=== PATIENT | female | born 1985 | race Caucasian/White ===

== ENCOUNTER 2019-09-06 20:18 | Outpatient (CLI) | payer OTHER ==
[~2019-09-06] VITALS: Ht 172.7 cm; Wt 102.3 kg
[2019-09-06 20:26] VITALS: BP 134/80
== END 2019-09-06 21:30 | disposition home or self-care (01) ==
LOC: LDOP 20:18
PROVIDERS: ATTEND Student in an Organized Health Care Education/Training Program
DX: O42.92 Full-term premature rupture of membranes, unspecified as to length of time between rupture and onset of labor (principal); Z3A.38 38 weeks gestation of pregnancy
CPT/HCPCS: 59025; 84112; 99201; G0463

== ENCOUNTER 2019-09-11 01:23 | Inpatient (IN) | payer OTHER ==
[~2019-09-11] VITALS: Ht 172.7 cm; Wt 103.2 kg
[2019-09-11 01:22] VITALS: BP 119/86
[2019-09-11] MEDS ORDERED: METOCLOPRAMIDE 5 MG/ML, 2ML ONE (01:58)
[2019-09-11] MEDS ORDERED: SODIUM CITRATE/CITRIC ACID 30 ML UDC ONE (01:58)
[2019-09-11] MEDS ORDERED: OXYTOCIN 30U/ 0.9% NaCL 500ML 500 ML ONE ×2 (01:58→04:13)
[2019-09-11] MEDS ORDERED: NEWBORN KIT ONE (01:58)
[2019-09-11] MEDS ORDERED: METOCLOPRAMIDE 5 MG/ML, 2ML IV ONE (02:00)
[2019-09-11] MEDS ORDERED: LACTATED RINGERS 1,000 ML IVBOLUS ONE (02:00)
[2019-09-11] MEDS ORDERED: SODIUM CITRATE/CITRIC ACID 30 ML UDC PO ONE (02:00)
[2019-09-11 02:23] LABS: BASOPHILS # (AUTO) 0.03 x10^3/uL (0-0.1); BASOPHILS % (AUTO) 1 % (0-1); EOSINOPHILS # (AUTO) 0.12 x10^3/uL (0-0.4); EOSINOPHILS % (AUTO) 2 % (1-7); LYMPHOCYTES # (AUTO) 2.54 x10^3/uL (1-3.4); LYMPHOCYTES % (AUTO) 35 % (22-44); MD NO; MEAN CORPUSCULAR HEMOGLOBIN 28.4 pg (27.0-34.8); MEAN CORPUSCULAR HGB CONC 33.7 g/dL (32.4-35.8); MEAN CORPUSCULAR VOLUME 84.4 fL (80-100); MEAN PLATELET VOLUME 8.8 fL (7.4-10.4); MONOCYTES # (AUTO) 0.32 x10^3/uL (0.2-0.8); MONOCYTES % (AUTO) 4 % (2-9); NEUTROPHILS # (AUTO) 4.18 x10^3/uL (1.8-6.8); NEUTROPHILS % (AUTO) 58 % (42-75); PLATELET COUNT 186 x10^3/uL (130-400); RED BLOOD COUNT 3.81 x10^6/uL (3.82-5.3); RED CELL DISTRIBUTION WIDTH 13.9 % (9.6-15.2)
[2019-09-11] MEDS ORDERED: EPHEDRINE 50 MG/ML, 1ML IVPush PRN (04:00)
[2019-09-11] MEDS ORDERED: METOPROLOL 1 MG/ML, 5ML IV PRN (04:00)
[2019-09-11] MEDS ORDERED: PROMETHAZINE 25 MG/ML, 1ML IV PRN (04:00)
[2019-09-11] MEDS ORDERED: OXYcodone 5 MG/5 ML ORAL.SOL UDC PO PRN (04:00)
[2019-09-11] MEDS ORDERED: FENTANYL PF 100 MCG/2ML IV PRN (04:00)
[2019-09-11] MEDS ORDERED: HYDROmorphone 2 MG/ML, 1ML IVPush PRN (04:00)
[2019-09-11] MEDS ORDERED: HYDROcodone/APAP 7.5-325MG/15ML UDC PO PRN (04:00)
[2019-09-11] MEDS ORDERED: MEPERIDINE/PF 25MG/0.5ML IVPush PRN (04:00)
[2019-09-11] MEDS ORDERED: ONDANSETRON 2MG/ML, 2ML IVPush PRN (04:00)
[2019-09-11] MEDS ORDERED: hydrALAzine 20 MG/ML, 1ML IV PRN (04:00)
[2019-09-11] MEDS ORDERED: ALBUTEROL SULFATE 2.5 MG/3 ML NPPB PRN (04:00)
[2019-09-11] MEDS ORDERED: LABETALOL 5MG/ML, 20ML IV PRN (04:00)
[2019-09-11] MEDS ORDERED: PHENYLEPHRINE 10 MG/ML ONE (04:31)
[2019-09-11] MEDS ORDERED: EPHEDRINE 50 MG/ML, 1ML ONE (04:31)
[2019-09-11] MEDS ORDERED: KETOROLAC 30 MG/1 ML ONE (04:31)
[2019-09-11] MEDS ORDERED: CEFAZOLIN 1,000 MG ONE (04:31)
[2019-09-11] MEDS ORDERED: ONDANSETRON 2MG/ML, 2ML ONE (04:31)
[2019-09-11] MEDS ORDERED: DEXAMETHASONE 4 MG/ML, 1ML ONE (04:31)
[2019-09-11] MEDS ORDERED: OXYTOCIN 10 UNITS/ML, 1ML ONE (04:31)
[2019-09-11] MEDS ORDERED: FENTANYL PF 100 MCG/2ML ONE (04:32)
[2019-09-11] MEDS ORDERED: HYDROmorphone 2 MG/ML, 1ML ONE (04:40)
[2019-09-11] MEDS: OXYTOCIN 30U/ 0.9% NaCL 500ML 500 ML IV SCH ×2 (06:01→23:47)
[2019-09-11] MEDS: LACTATED RINGERS 1,000 ML IV SCH ×4 (06:01→23:47)
[2019-09-11] MEDS ORDERED: IBUPROFEN 600 MG TABLET PO PRN (06:30)
[2019-09-11] MEDS ORDERED: IBUPROFEN 800 MG TABLET PO PRN (06:30)
[2019-09-11] MEDS ORDERED: OXYcodone/APAP 5/325MG TABLET PO PRN (06:30)
[2019-09-11] MEDS ORDERED: ONDANSETRON 2MG/ML, 2ML IV PRN (06:30)
[2019-09-11] MEDS ORDERED: METOCLOPRAMIDE 5 MG/ML, 2ML IV PRN (06:30)
[2019-09-11] MEDS ORDERED: CARBOPROST TROMETHAMINE 250 MCG/ML, 1ML IM PRN (06:30)
[2019-09-11] MEDS ORDERED: GLYCERIN ADULT SUPP PR PRN (06:30)
[2019-09-11] MEDS ORDERED: ACETAMINOPHEN 325 MG TABLET PO PRN (06:30)
[2019-09-11] MEDS ORDERED: MISOPROSTOL 200 MCG TABLET PR PRN (06:30)
[2019-09-11] MEDS ORDERED: METHYLERGONOVINE 0.2 MG/ML IM PRN (06:30)
[2019-09-11] MEDS ORDERED: morphine SULFATE 10 MG/ML, 1ML IVPush PRN (06:30)
[2019-09-11] MEDS ORDERED: BISACODYL 10 MG SUPP PR PRN (06:30)
[2019-09-11] MEDS ORDERED: OXYcodone IR 5MG TABLET ONE (07:32)
[2019-09-11] MEDS: OXYcodone IR 5MG TABLET PO PRN ×4 (07:50→22:21)
[2019-09-11 08:45] VITALS: BP 124/82
[2019-09-11] MEDS: PRENATAL VIT/IRON/FA 1 EACH TABLET PO SCH (09:00)
[2019-09-11] MEDS: KETOROLAC 30 MG/1 ML IV SCH ×3 (11:28→23:25)
[2019-09-11 14:02] LABS: BASOPHILS # (AUTO) 0.04 x10^3/uL (0-0.1); BASOPHILS % (AUTO) 1 % (0-1); EOSINOPHILS % (AUTO) 0 % (1-7); LYMPHOCYTES # (AUTO) 1.16 x10^3/uL (1-3.4); LYMPHOCYTES % (AUTO) 14 % (22-44); MD NO; MEAN CORPUSCULAR HEMOGLOBIN 28.1 pg (27.0-34.8); MEAN CORPUSCULAR HGB CONC 33.3 g/dL (32.4-35.8); MEAN CORPUSCULAR VOLUME 84.5 fL (80-100); MEAN PLATELET VOLUME 8.9 fL (7.4-10.4); MONOCYTES % (AUTO) 2 % (2-9); NEUTROPHILS # (AUTO) 7.05 x10^3/uL (1.8-6.8); NEUTROPHILS % (AUTO) 83 % (42-75); PLATELET COUNT 164 x10^3/uL (130-400); RED BLOOD COUNT 3.56 x10^6/uL (3.82-5.3); RED CELL DISTRIBUTION WIDTH 14.3 % (9.6-15.2)
[2019-09-11 15:00] VITALS: BP 98/62
[2019-09-11 20:10] VITALS: BP 103/71
[2019-09-11] MEDS: DOCUSATE 100 MG CAPSULE PO PRN (22:22)
[2019-09-12 01:30] VITALS: BP 109/66
[2019-09-12] MEDS: OXYTOCIN 30U/ 0.9% NaCL 500ML 500 ML IV SCH ×3 (02:01→22:01)
[2019-09-12] MEDS: LACTATED RINGERS 1,000 ML IV SCH ×6 (02:01→22:01)
[2019-09-12] MEDS: SIMETHICONE 80 MG CHEW TAB PO PRN ×2 (03:57→14:09)
[2019-09-12] MEDS: OXYcodone IR 5MG TABLET PO PRN ×4 (03:57→20:13)
[2019-09-12] MEDS: KETOROLAC 30 MG/1 ML IV SCH ×4 (05:36→23:37)
[2019-09-12 07:45] VITALS: BP 110/70
[2019-09-12] MEDS: PRENATAL VIT/IRON/FA 1 EACH TABLET PO SCH (08:19)
[2019-09-12] MEDS: DOCUSATE 100 MG CAPSULE PO PRN ×2 (08:19→20:13)
[2019-09-12 12:15] VITALS: BP 117/72
[2019-09-12 20:03] VITALS: BP 120/70
[2019-09-13] MEDS ORDERED: KETOROLAC 30 MG/1 ML ONE (05:28)
[2019-09-13] MEDS: KETOROLAC 30 MG/1 ML IV SCH (05:30)
[2019-09-13] MEDS: OXYcodone IR 5MG TABLET PO PRN ×3 (05:30→14:42)
[2019-09-13] MEDS: LACTATED RINGERS 1,000 ML IV SCH ×2 (05:59→08:01)
[2019-09-13] MEDS: DOCUSATE 100 MG CAPSULE PO PRN (07:18)
[2019-09-13] MEDS: PRENATAL VIT/IRON/FA 1 EACH TABLET PO SCH (07:18)
[2019-09-13] MEDS ORDERED: OXYC-302 PO (07:49)
[2019-09-13] MEDS ORDERED: IBUP-1223 PO (07:49)
[2019-09-13] MEDS ORDERED: DOCU-131 PO (07:49)
[2019-09-13] MEDS: OXYTOCIN 30U/ 0.9% NaCL 500ML 500 ML IV SCH (08:01)
[2019-09-13 08:25] VITALS: BP 133/70
== END 2019-09-13 14:50 | disposition home or self-care (01) | DRG 785 ==
LOC: LDIP 01:23 → 2NW 08:01
PROVIDERS: ADMIT Student in an Organized Health Care Education/Training Program; ATTEND Student in an Organized Health Care Education/Training Program
PROC: 10D00Z1 Extraction of Products of Conception, Low, Open Approach (ICD-10-PCS; principal; 2019-09-11)
PROC: 0UB70ZZ Excision of Bilateral Fallopian Tubes, Open Approach (ICD-10-PCS; 2019-09-11)
DX: O24.92 Unspecified diabetes mellitus in childbirth (principal); O34.211 Maternal care for low transverse scar from previous cesarean delivery; Z37.0 Single live birth; Z3A.39 39 weeks gestation of pregnancy; Z30.2 Encounter for sterilization; Z79.4 Long term (current) use of insulin; Z90.49 Acquired absence of other specified parts of digestive tract
CPT/HCPCS: 36415; 82803; 85025; 86592; 86850; 86900; 88302; G0378; J0690; J1100; J1170; J1885; J2405; J3010; C1765; J2370; J2590; J2765; J7120